=== PATIENT | male | born 1985 | race Caucasian/White ===

== ENCOUNTER 2018-10-16 06:21 | Outpatient (CLI) | payer OTHER ==
[~2018-10-16] VITALS: Ht 180.3 cm; Wt 84.8 kg
[2018-10-16] MEDS ORDERED: PANT40TA3 PO (11:52)
[2018-10-18] MEDS ORDERED: ACHD5005 PO (09:40)
== END 2018-10-16 12:04 | disposition home or self-care (01) ==
LOC: PREOP 06:21
PROVIDERS: ATTEND Surgery
DX: Z01.818 Encounter for other preprocedural examination (principal)

== ENCOUNTER 2018-10-18 05:58 | Day surgery (SDC) | payer OTHER ==
[~2018-10-18] VITALS: Ht 180.3 cm; Wt 84.8 kg
[~2018-10-18 05:58] MED LIST: PANT40TA3 PO
--- OUTSIDE RECORDS SUMMARY | 2018-10-18 06:02 | XMS REPORT ---
Author Author ANAHY DILL Organization [facility] Address [address] [place] [address] Care Team Providers Care Rail Car Welder Name Role Phone ANAHY DILL Unavailable PROBLEMS Type Condition ICD9-CM Code [id number] Code Onset Dates Condition Status SNOMED Code Problem Gastroesophageal reflux disease with esophagitis K21.0 Active [id number] ALLERGIES No Known Allergies ENCOUNTERS Encounter Location Date Diagnosis [place] [id number] [place] [phone] Mar, [facility] [address] [place], [place] [id number] [place] [phone] Jan, Sebaceous cyst L72.3 ; Skin tag L91.8 ; Non-recurrent unilateral inguinal hernia without obstruction or gangrene K40.90 and Unexplained weight loss R63.4 [facility] [address] [place], [place] [id number] [place] [phone] Jun, Gastroesophageal reflux disease with esophagitis K21.0 IMMUNIZATIONS No Known Immunizations SOCIAL HISTORY Never Assessed REASON FOR VISIT boil on back, PT reports the lump appeared about 3-4 months ago and started out small and slowly got bigger. -Giovanny [place] , PT reports he has been having loss of appetite for about 3 months now. -Giovanny [place]ON PLAN OF CARE VITAL SIGNS Height 71 in 2018-02-10 Weight 186.6 lbs 2018-02-10 Temperature 98.2 degrees Fahrenheit 2018-02-10 Heart Rate 82 bpm 2018-02-10 Respiratory Rate 20 2018-02-10 Oximetry 97 % 2018-02-10 BMI 26.02 kg/m2 2018-02-10 Blood pressure systolic 118 mmHg 2018-02-10 Blood pressure diastolic 68 mmHg 2018-02-10 MEDICATIONS Medication Instructions Dosage Frequency Start Date End Date Duration Status Pantoprazole Sodium 40 MG Orally Once a day 1 tablet 24h Jun, 30 day(s) Active RESULTS No Results PROCEDURES Procedure Date Ordered Result Body Site COMPREHEN METABOLIC PANEL February 10, 2018 ASSAY THYROID STIM HORMONE February 10, 2018 COMPLETE CBC W/AUTO DIFF WBC February 10, 2018 INSTRUCTIONS MEDICATIONS ADMINISTERED No Known Medications MEDICAL (GENERAL) HISTORY Type Description Date Surgical History ventral hernia repair
--- OUTSIDE RECORDS SUMMARY | 2018-10-18 06:02 | XMS REPORT ---
Author Author ANAHY DILL Organization [facility] Address [address] [place] [address] Care Team Providers Care Account Representative Name Role Phone ANAHY DILL Unavailable PROBLEMS Type Condition ICD9-CM Code [id number] Code Onset Dates Condition Status SNOMED Code Problem Gastroesophageal reflux disease with esophagitis K21.0 Active [id number] ALLERGIES No Known Allergies ENCOUNTERS Encounter Location Date Diagnosis [facility] [address] [facility] [id number] [address] Jun, Gastroesophageal reflux disease with esophagitis K21.0 IMMUNIZATIONS No Known Immunizations SOCIAL HISTORY Never Assessed REASON FOR VISIT Establish Care----shawn Dalton PLAN OF CARE VITAL SIGNS Height 71 in 2017-07-01 Weight 204 lbs 2017-07-01 Temperature 98.8 degrees Fahrenheit 2017-07-01 Heart Rate 70 bpm 2017-07-01 Respiratory Rate 20 2017-07-01 BMI 28.45 kg/m2 2017-07-01 Blood pressure systolic 104 mmHg 2017-07-01 Blood pressure diastolic 70 mmHg 2017-07-01 MEDICATIONS Medication Instructions Dosage Frequency Start Date End Date Duration Status Pantoprazole Sodium 40 MG Orally Once a day 1 tablet 24h Jun, 30 day(s) Active Amoxicillin 500 mg Orally 2 times a day 2 capsules Jun,Jun 14 days Active Metronidazole 500 mg Orally Twice a day 1 tablet 12h Jun, Jun, 14 days Active RESULTS Name Result Date Reference Range H PYLORI (IN HOUSE) 2017-07-01 H. PYLORI POSITIVE Control + Lot # [id number] Exp date 12/26/17 PROCEDURES Procedure Date Ordered Result Body Site IMMUNOASSAY,INFECTIOUS AGENT Jul 01, 2017 INSTRUCTIONS MEDICATIONS ADMINISTERED No Known Medications MEDICAL (GENERAL) HISTORY Type Description Date Surgical History ventral hernia repair
--- OUTSIDE RECORDS SUMMARY | 2018-10-18 06:02 | XMS REPORT ---
Author Author ANAHY DILL Organization [facility] Address [address] [place] [address] Care Team Providers Care Yarn Conditioner Name Role Phone ANAHY DILL Unavailable PROBLEMS Type Condition ICD9-CM Code [id number] Code Onset Dates Condition Status SNOMED Code Problem Gastroesophageal reflux disease with esophagitis K21.0 Active [id number] ALLERGIES No Information ENCOUNTERS Encounter Location Date Diagnosis [place] [id number] [place] [phone] Mar, [place] [address] [place] [id number] [place] [phone] Mar, Sebaceous cyst L72.3 [place] [id number] [place] [phone] Jan, Sebaceous cyst L72.3 ; Skin tag L91.8 ; Non-recurrent unilateral inguinal hernia without obstruction or gangrene K40.90 and Unexplained weight loss R63.4 [place] [id number] [place] [phone] Jun, Gastroesophageal reflux disease with esophagitis K21.0 IMMUNIZATIONS No Known Immunizations SOCIAL HISTORY Never Assessed REASON FOR VISIT suture removal PLAN OF CARE VITAL SIGNS MEDICATIONS Unknown Medications RESULTS No Results PROCEDURES No Known procedures INSTRUCTIONS MEDICATIONS ADMINISTERED No Known Medications MEDICAL (GENERAL) HISTORY Type Description Date Medical History acid reflux Surgical History ventral hernia repair
[2018-10-18] MEDS ORDERED: ceFAZolin 2 GM IV Premixed 50 ML IV ONE (06:15)
[2018-10-18 06:25] VITALS: BP 115/71
[2018-10-18] MEDS ORDERED: ROCURONIUM 10 MG/ML 5 ML SYRINGE IV ONE (06:48)
[2018-10-18] MEDS ORDERED: proPOfol 200 MG/20 ML (DIPRIVAN) VIAL IV ONE ×2 (06:48→08:51)
[2018-10-18] MEDS ORDERED: LIDOCAINE PF 2% 5 ML (XYLOCAINE) VIAL ONE (06:48)
[2018-10-18] MEDS ORDERED: fentaNYL INJECTION 100 MCG/2 ML AMP ONE ×2 (06:48→08:48)
[2018-10-18] MEDS ORDERED: DEXAMETHASONE 10 MG/ML (DECADRON) 1 ML VIAL ONE (06:48)
[2018-10-18] MEDS ORDERED: ONDANSETRON 4 MG/2 ML (SDV) Z0FRAN ONE (06:48)
[2018-10-18] MEDS: LACTATED RINGERS 1,000 ML IV PRN ×2 (06:50→08:55)
[2018-10-18] MEDS ORDERED: SEVOFLURANE (ULTANE) 15 ML INHAL SOLN ONE ×3 (06:56→09:48)
[2018-10-18] MEDS ORDERED: MIDAZOLAM 2 MG/2 ML (VERSED) VIAL ONE ×2 (07:02→08:29)
[2018-10-18] MEDS ORDERED: FAMOTIDINE 20MG/2ML IV (PEPCID) ONE (07:02)
[2018-10-18] MEDS ORDERED: FAMOTIDINE 20MG/2ML IV (PEPCID) IV ONE (07:15)
[2018-10-18] MEDS ORDERED: MIDAZOLAM 2 MG/2 ML (VERSED) VIAL IV ONE (07:15)
[2018-10-18] MEDS ORDERED: BUP/EPI 0.5% 1:200,000 (SENSORCAINE) 30 ML VIAL ONE (07:34)
[2018-10-18] MEDS ORDERED: LIDOCAINE 1% INJ 20 ML 20 ML VIAL ONE (07:34)
--- NOTE | 2018-10-18 08:26 | Progress Note-Pre Operative ---
Pre-Operative Progress Note H&P Reviewed The H&P was reviewed, patient examined and no changes noted. Time Seen by Provider: 08:15 Date H&P Reviewed: Oct 18, 2018 Time H&P Reviewed: 08:16 Pre-Operative Diagnosis: Incarcerated Left inguinal hernia SHANI ARZOLA DO Oct 18, 2018 08:26
[2018-10-18] MEDS ORDERED: NEOSTIGMINE 1 MG/ML 5 ML SYRINGE ONE (08:57)
[2018-10-18] MEDS ORDERED: GLYCOPYRROLATE 0.2 MG/ML (ROBINUL) 2 ML VIAL ONE (08:57)
--- NOTE | 2018-10-18 09:39 | Progress Note-Post Operative ---
Post-Operative Progess Note Surgeon (s)/Metals Analyst (s) Surgeon SHANI ARZOLA DO Metals Analyst: Gulshan Pre-Operative Diagnosis Incarcerated Left inguinal hernia Post-Operative Diagnosis Same - indirect Procedure & Operative Findings Date of Procedure 10/18/18 Procedure Performed/Findings LIH with mesh Anesthesia Type GET Estimated Blood Loss Estimated blood loss (mL): <20ml Specimens/Packing Specimens Removed hernia sac SHANI ARZOLA DO Oct 18, 2018 09:39
[2018-10-18] MEDS ORDERED: ACHD5005 PO (09:40)
--- NOTE | 2018-10-18 09:42 | Discharge Inst-Surgical ---
Discharge Inst-Surgical Depart Medication/Instructions New, Converted or Re-Newed RX: RX Given to Pt/Family Patient Instructions Follow up Appt: Make appointment for 1 week. [phone] Instructions: No lifting greater than 20 pounds. No strenuous activity. May shower in 24 hours, no tub bath or soaking. Use incentive spirometer at home as directed. No Smoking Skin/Wound Care: May remove bandages in am. You need to leave the Dermabond on incision it will fall off on it's own. Symptoms to Report: Appetite Changes, Extremity Discoloration, Numbness/Tingling, Swelling Increased , Bleeding Excessive, Eyesight Changes, Pain Increased, Urine Color Change, Constipation(Persistent), Fever over 101 degree F, Pain/Pressure in chest, Urinating Difficulty, Cough Up/Vomit Blood, Heart Beat Irreg/Pounding, Pain/ Pressure in jaw, Cramps in feet or legs, Lightheadedness, Pain/Pressure in shoulder, Diarrhea(Persistent), Memory Changes Suddenly, Questions/Concerns, Weight gain consecutive days, Dizziness/Fainting, Nausea/Vomiting, Shortness of Breath, Weight gain over 2 pounds If questions or concerns contact your physician Or seek help at emergency department. Activity Activity as Tolerated: Yes Activity Instructions: Avoid Stress to Incision Driving Instructions: No Driving/Refer to Dr. Guerrero Discharge Diet: No Restrictions Diet After 24 Hours: Clear Liquid if Nauseous If Any Problems/Questions/Issu: Contact Your Physician, Go to Emergency Room Skin/Wound Care Infection Signs and Symptoms: Increased Redness, Foul Odor of Wound, Increased Drainage, Skin Itchy or Has a Rash, Increased Swelling, Temperature Above 101 F Wound Care Comment: Wear supportive underwear Bathing Instructions: Shower Stitches/[place]/Dermabond Dis: Dermabond Ice Pack: Ice On and Off Site (as needed for pain) SHANI ARZOLA DO Oct 18, 2018 09:42
[2018-10-18] MEDS ORDERED: KETOROLAC 30 MG/ML VIAL IVP ONE (10:00)
[2018-10-18] MEDS ORDERED: MEPERIDINE (DEMEROL) INJ 50 MG/ML IVP ONE (10:00)
[2018-10-18] MEDS ORDERED: ONDANSETRON 4 MG/2 ML (SDV) Z0FRAN IVP PRN (10:00)
[2018-10-18] MEDS ORDERED: fentaNYL INJECTION 100 MCG/2 ML AMP IVP ONE (10:00)
[2018-10-18] MEDS ORDERED: morphine INJ 10 MG/ML 1ML (SYR OR VIAL) IVP ONE (10:00)
[2018-10-18 10:50] VITALS: BP 114/79
[2018-10-18] MEDS ORDERED: HYDROcodone/APAP 5 MG/325 MG (LORTAB) TAB PO ONE (11:00)
[2018-10-18 11:20] VITALS: BP 120/77
--- NOTE | 2018-10-18 11:23 | Anesthesia-General Post-Op ---
General Patient Condition Mental Status/LOC: Same as Preop Cardiovascular: Satisfactory Nausea/Vomiting: Absent Respiratory: Satisfactory Pain: Controlled Complications: Absent Post Op Complications Complications None Follow Up Care/Instructions Patient Instructions None needed. Anesthesia/Patient Condition Patient Condition Patient is doing well, no complaints, stable vital signs, no apparent adverse anesthesia problems. No complications reported per nursing. MICHELLE BARRIENTOS CRNA Oct 18, 2018 11:23
[2018-10-18 11:50] VITALS: BP 123/80
--- NOTE | 2018-10-18 14:23 | OPERATIVE REPORT ---
DATE OF SERVICE: 10/18/2018 PREOPERATIVE DIAGNOSIS: Left incarcerated inguinal hernia. POSTOPERATIVE DIAGNOSIS: Left incarcerated inguinal hernia, it was indirect. PROCEDURE: Left inguinal herniorrhaphy and mesh placement. SURGEON: Sawyer Yoo DO ANALYTICS LEAD: John Gaffney DO ANESTHESIA: General endotracheal tube. SPECIMEN: Hernia sac. BLOOD LOSS: Less than 20 mL. FLUIDS: Per anesthesia. POSTOPERATIVE CONDITION: Stable. INDICATION FOR PROCEDURE: The patient is a 33-year-old male, who has a very large left inguinal hernia that has been getting bigger causing more pain. He wants to get it fixed. FINDINGS: The patient had an incarcerated indirect left inguinal hernia, had omentum as well as intestine in it. PROCEDURE NOTE: After informed consent was obtained, the patient was brought to the operating room, placed on the table in supine position, sterilely prepped and draped in normal fashion. Local lidocaine used to perform ilioinguinal nerve block as well as pubic tubercle block and infiltrated left inguinal region with local, made incision with #15 blade, carried down through the skin into the subcutaneous tissue and deepened down to subcutaneous tissue with Bovie electrocautery down to the fascia of external oblique. External oblique fascia was then infiltrated with local and incised to the external inguinal ring with Bovie electrocautery and then able to grasp the sides with hemostats and then carefully started dissecting under the external oblique fascia, could not get around the cord because it was still large, so elected to go through the hernia sac and with Bovie electrocautery once through, noted omentum, started to open the hernia sac a little bit further and I then started pulling the omentum out of the scrotum, pulled out a very large amount of omentum as well as then a part of the colon. I was able to push this back up into the abdomen, then started freeing up the hernia sac from the cord and cord structures. This hernia sac was very large. It took about 20 minutes just to free it up. Once it was freed up, then twisted it down and then suture ligated with 0 Vicryl two times, cut the top off and watched it retract in. There was a little bit of a floor defect, so I elected to close the floor with 2-0 Vicryl, 2 interrupted sutures. I then placed a left-sided Parietex mesh, sutured it into the pubic tubercle and had cut to fit into the inguinal canal and encircled the cord with a precut hole and then placed the rest of it up under the external oblique fascia and laid in very nicely, copiously irrigated with normal saline, suctioned this out and then elected to close the Sid's fascia with 3-0 Vicryl running suture, thereby recreating the external inguinal ring, that was closed in external oblique fascia with 3-0 Vicryl, then closed Sid's fascia with 3-0 Vicryl 3 interrupted sutures and then closed the skin with 4-0 undyed Monocryl in running subcuticular fashion. Area was cleaned and dried and Dermabond was placed as well as a pressure dressing. The patient tolerated the procedure and was transferred to recovery room in stable condition. Sponge, instrument and needle counts were correct at the end of the case. Dr. Gaffney assisted in this case helping to identify anatomy, holding the anatomy away, make incisions as well as cut and to close the incision. Job ID: [id number] DocumentID: [id number] Dictated Date: 10/18/2018 10:01:21 X Ray Consultant Date: 10/18/2018 14:22:47 Dictated By: SAWYER YOO DO
== END 2018-10-18 11:55 | disposition home or self-care (01) ==
LOC: SDC 05:58
PROVIDERS: ATTEND Surgery
DX: K40.30 Unilateral inguinal hernia, with obstruction, without gangrene, not specified as recurrent (principal); Z11.2 Encounter for screening for other bacterial diseases; F17.210 Nicotine dependence, cigarettes, uncomplicated; F32.9 Major depressive disorder, single episode, unspecified; F41.9 Anxiety disorder, unspecified; K21.9 Gastro-esophageal reflux disease without esophagitis
CPT/HCPCS: 87081; 94664